=== PATIENT | male | born 1950 | race Caucasian/White ===

== ENCOUNTER 2017-06-06 18:16 | Emergency (ER) | payer MEDICARE, OTHER ==
[2017-06-06 18:25] VITALS: TEMP 98.3
[2017-06-06 18:49] LABS: Basophils % (A) 1 %; Eosinophils # (A) 0.1 k/uL (0-0.7); Eosinophils % (A) 1 %; HCT 42.9 % (39.0-53.0); HGB 14.1 gm/dL (13.0-17.5); Lymphocytes # (A) 2.1 k/uL (1.0-4.8); Lymphocytes % (A) 28 %; MCH 31.7 pg (25.0-35.0); MCHC 32.8 g/dL (31.0-37.0); MCV 96.5 fL (80.0-100.0); Mean Platelet Volume 7.3; Monocytes # (A) 0.6 k/uL (0-1.0); Monocytes % (A) 8 %; Neutrophils # (A) 4.5 k/uL (1.3-7.7); Neutrophils % (A) 61 %; Platelet Count 227 k/uL (150-450); RBC 4.45 m/uL (4.30-5.90); RDW 14.6 % (11.5-15.5); WBC 7.4 k/uL (3.8-10.6)
[2017-06-06 18:59] LABS: ALT 29 U/L (21-72); AST 25 U/L (17-59); Albumin 3.7 g/dL (3.5-5.0); Alkaline Phosphatase 54 U/L (38-126); Amylase 64 U/L (30-110); Anion Gap 9 mmol/L; Blood Urea Nitrogen 20 mg/dL (9-20); Calcium 9.3 mg/dL (8.4-10.2); Carbon Dioxide 29 mmol/L (22-30); Chloride 102 mmol/L (98-107); Glucose 87 mg/dL (74-99); Lipase 42 U/L (23-300); Sodium 140 mmol/L (137-145); Total Bilirubin 0.4 mg/dL (0.2-1.3); Total Protein 6.3 g/dL (6.3-8.2)
[2017-06-06 19:29] LABS: Appearance,Urine Clear (Clear); Bilirubin,Urine Negative (Negative); Blood,Urine Negative (Negative); Color,Urine Yellow; Glucose,Urine (UA) Negative (Negative); Ketones,Urine 1+ (Negative); Leukocyte Esterase,Urine Trace (Negative); Mucus,Urine Occasional /hpf; Nitrite,Urine Negative (Negative); PH, Urine 6.5 (5.0-8.0); Protein,Urine Trace (Negative); RBC,Urine 1 /hpf (0-5); Specific Gravity,Urine 1.024 (1.001-1.035); WBC,Urine <1 /hpf (0-5)
--- NOTE | 2017-06-06 19:52 | XR ---
EXAMINATION TYPE: XR abdomen acute w cxr , 3 VIEWS DATE OF EXAM ORDERED: 06/06/2017 HISTORY: Pain. COMPARISON: None. FINDINGS: The lungs are clear. Pleural space are clear. The heart is not enlarged. Within the abdomen, there is mild gaseous distention of small bowel. Large bowel is normal in caliber . There are air-fluid levels in the upper abdomen. No unusual calcifications are seen. IMPRESSION: 1. NORMAL CHEST. 2. FINDINGS MOST CONSISTENT WITH SMALL BOWEL ILEUS WITHIN THE ABDOMEN.
--- NOTE | 2017-06-06 20:28 | ED ---
Abdominal Pain HPI - General Chief Complaint: Chest Pain Stated Complaint: chest pain Time Seen by Provider: 06/06/17 18:25 Source: EMS Mode of arrival: EMS Limitations: physical limitation (Developmental delay) - History of Present Illness Initial Comments: This patient is a 66-year-old man here for epigastric and right upper quadrant pain. This pain started approximately 2 hours before he arrived here. He had eaten and then developed pain and vomiting. History is mostly given by the patient's caregiver as she does have some developmental delay. He is not able to characterize the pain well. It does seem to come in "spasms" that last a few minutes and resolve with a number of minutes in between. He has had a few episodes of vomiting as well. No reported or apparent dyspnea. No cough or hemoptysis. No change in urination or bowel movements noted by the caregiver. MD Complaint: abdominal pain Onset/Timin -: hour(s) Location: RUQ, epigastric Radiation: none Migration to: no migration Severity: severe Quality: aching Consistency: now resolved, colicky Improves With: nothing Worsens With: nothing Associated Symptoms: nausea, vomiting - Related Data Home Medications Medication Instructions Recorded Confirmed Divalproex Sodium [Depakote] 500 mg PO BID 06/06/17 06/06/17 Previous Rx's Medication Instructions Recorded Ondansetron Odt [Zofran ODT] 4 mg PO Q8HR PRN #10 tab 06/06/17 Allergies Allergy/AdvReac Type Severity Reaction Status Date / Time No Known Allergies Allergy Verified 06/06/17 19:35 Review of Systems ROS Statement: Those systems with pertinent positive or pertinent negative responses have been documented in the HPI. ROS Other: All systems not noted in ROS Statement are negative. Limitations: ROS unobtainable due to patients medical condition (Developmental delay) Constitutional: Denies: fever Respiratory: Denies: cough, dyspnea Cardiovascular: Denies: chest pain, syncope Gastrointestinal: Reports: abdominal pain, vomiting. Denies: diarrhea, constipation Genitourinary: Denies: dysuria, hematuria Musculoskeletal: Denies: back pain Skin: Denies: rash Neurological: Denies: headache Past Medical History Additional Past Medical History / Comment(s): pt poor historian History of Any Multi-Drug Resistant Organisms: None Reported Additional Past Surgical History / Comment(s): pt poor historian Smoking Status: Current every day smoker Past Alcohol Use History: None Reported Past Drug Use History: None Reported General Exam Limitations: no limitations General appearance: alert, in no apparent distress, other (Patient appears to be resting comfortably at my exam.) Head exam: Present: atraumatic, normocephalic Eye exam: Present: normal appearance. Absent: scleral icterus, conjunctival injection ENT exam: Present: normal oropharynx Respiratory exam: Present: normal lung sounds bilaterally. Absent: respiratory distress, wheezes, rales, rhonchi, stridor, chest wall tenderness Cardiovascular Exam: Present: regular rate, normal rhythm, normal heart sounds. Absent: systolic murmur, diastolic murmur, rubs, gallop GI/Abdominal exam: Present: soft, tenderness (Upper quadrant). Absent: distended, guarding, rebound, rigid, organomegaly, mass, pulsatile mass, hernia Extremities exam: Present: normal inspection, normal capillary refill. Absent: pedal edema, calf tenderness Back exam: Present: normal inspection. Absent: CVA tenderness (R), CVA tenderness (L) Neurological exam: Present: alert Skin exam: Present: warm, dry, intact, normal color. Absent: rash Course Vital Signs 06/06/17 06/06/17 18:18 20:28 Temperature 98.3 F Pulse Rate 51 L 78 Respiratory 18 16 Rate Blood Pressure 133/65 131/70 O2 Sat by Pulse 99 99 Oximetry Medical Decision Making - Medical Decision Making Further history revealed that the patient had eaten a chicken sandwich which the caregiver was concerned about, prior to the onset of symptoms. On reevaluation, the patient states that he has stopped having nausea and vomiting. The spasms have resolved. He has no tenderness on the repeat exam. The patient does want to go home. I discussed the findings, and stressed that if they do go home they need to follow-up with Dr. Ashby, calling for an appointment in the morning. If there is any problem getting into see him tomorrow or if the symptoms recur they will return here. I did provide a by mouth fluid challenge which the patient tolerated. - Lab Data Result diagrams: 06/06/17 18:32 06/06/17 18:32 Lab Results 06/06/17 06/06/17 06/06/17 Range/Units 18:32 18:32 18:32 WBC 7.4 (3.8-10.6) k/uL RBC 4.45 (4.30-5.90) m/uL Hgb 14.1 (13.0-17.5) gm/dL Hct 42.9 (39.0-53.0) % MCV 96.5 (80.0-100.0) fL MCH 31.7 (25.0-35.0) pg MCHC 32.8 (31.0-37.0) g/dL RDW 14.6 (11.5-15.5) % Plt Count 227 (150-450) k/uL Neutrophils % 61 % Lymphocytes % 28 % Monocytes % 8 % Eosinophils % 1 % Basophils % 1 % Neutrophils # 4.5 (1.3-7.7) k/uL Lymphocytes # 2.1 (1.0-4.8) k/uL Monocytes # 0.6 (0-1.0) k/uL Eosinophils # 0.1 (0-0.7) k/uL Basophils # 0.0 (0-0.2) k/uL Sodium 140 (137-145) mmol/L Potassium 4.0 (3.5-5.1) mmol/L Chloride 102 (98-107) mmol/L Carbon Dioxide 29 (22-30) mmol/L Anion Gap 9 mmol/L BUN 20 (9-20) mg/dL Creatinine 0.76 (0.66-1.25) mg/dL Est GFR (MDRD) Af Amer >60 (>60 ml/min/1.73 sqM) Est GFR (MDRD) Non-Af >60 (>60 ml/min/1.73 sqM) Glucose 87 (74-99) mg/dL Calcium 9.3 (8.4-10.2) mg/dL Total Bilirubin 0.4 (0.2-1.3) mg/dL AST 25 (17-59) U/L ALT 29 (21-72) U/L Alkaline Phosphatase 54 (38-126) U/L Troponin I <0.012 (0.000-0.034) ng/mL Total Protein 6.3 (6.3-8.2) g/dL Albumin 3.7 (3.5-5.0) g/dL Amylase 64 (30-110) U/L Lipase 42 (23-300) U/L Urine Color Urine Appearance (Clear) Urine pH (5.0-8.0) Ur Specific [place] (1.001-1.035) Urine Protein (Negative) Urine Glucose (UA) (Negative) Urine Ketones (Negative) Urine Blood (Negative) Urine Nitrite (Negative) Urine Bilirubin (Negative) Urine Urobilinogen (<2.0) mg/dL Ur Leukocyte Esterase (Negative) Urine RBC (0-5) /hpf Urine WBC (0-5) /hpf Urine Mucus (None) /hpf 06/06/17 Range/Units 19:12 WBC (3.8-10.6) k/uL RBC (4.30-5.90) m/uL Hgb (13.0-17.5) gm/dL Hct (39.0-53.0) % MCV (80.0-100.0) fL MCH (25.0-35.0) pg MCHC (31.0-37.0) g/dL RDW (11.5-15.5) % Plt Count (150-450) k/uL Neutrophils % % Lymphocytes % % Monocytes % % Eosinophils % % Basophils % % Neutrophils # (1.3-7.7) k/uL Lymphocytes # (1.0-4.8) k/uL Monocytes # (0-1.0) k/uL Eosinophils # (0-0.7) k/uL Basophils # (0-0.2) k/uL Sodium (137-145) mmol/L Potassium (3.5-5.1) mmol/L Chloride (98-107) mmol/L Carbon Dioxide (22-30) mmol/L Anion Gap mmol/L BUN (9-20) mg/dL Creatinine (0.66-1.25) mg/dL Est GFR (MDRD) Af Amer (>60 ml/min/1.73 sqM) Est GFR (MDRD) Non-Af (>60 ml/min/1.73 sqM) Glucose (74-99) mg/dL Calcium (8.4-10.2) mg/dL Total Bilirubin (0.2-1.3) mg/dL AST (17-59) U/L ALT (21-72) U/L Alkaline Phosphatase (38-126) U/L Troponin I (0.000-0.034) ng/mL Total Protein (6.3-8.2) g/dL Albumin (3.5-5.0) g/dL Amylase (30-110) U/L Lipase (23-300) U/L Urine Color Yellow Urine Appearance Clear (Clear) Urine pH 6.5 (5.0-8.0) Ur Specific [place] 1.024 (1.001-1.035) Urine Protein Trace H (Negative) Urine Glucose (UA) Negative (Negative) Urine Ketones 1+ H (Negative) Urine Blood Negative (Negative) Urine Nitrite Negative (Negative) Urine Bilirubin Negative (Negative) Urine Urobilinogen 3.0 (<2.0) mg/dL Ur Leukocyte Esterase Trace H (Negative) Urine RBC 1 (0-5) /hpf Urine WBC <1 (0-5) /hpf Urine Mucus Occasional H (None) /hpf - EKG Data -: EKG Interpreted by Sc EKG shows normal: sinus rhythm, axis, intervals (Normal), QRS complexes (Normal) , ST-T waves (Normal) Rate: bradycardia (Rate proximally 50 bpm) Disposition Clinical Impression: Vomiting, Ileus Disposition: HOME SELF-CARE Condition: Fair Instructions: Ileus (ED) Prescriptions: Ondansetron Odt [Zofran ODT] 4 mg PO Q8HR PRN #10 tab PRN Reason: Nausea Referrals: José Huerta DO [Primary Care Provider] - 1-2 days
[2017-06-06 20:31] VITALS: RESP 16
--- NOTE | 2017-06-06 21:44 | US ---
EXAMINATION TYPE: US abdomen limited DATE OF EXAM: 06/06/2017 COMPARISON: NONE CLINICAL HISTORY: Pain, RUQ. Vomiting EXAM MEASUREMENTS: Liver Length: 15.2 cm Gallbladder Wall: 0.24 cm CBD: 0.48 cm Right Kidney: 10.1 x 4.5 x 4.4 cm Pancreas: Obscured by bowel gas Liver: Fluid visualized Gallbladder: No stones seen Evidence for sonographic Delgadillo's sign: No CBD: wnl Right Kidney: No hydronephrosis or masses seen Small amount of pleural effusion seen. The pancreas is poorly visualized. The liver is normal in size without biliary dilatation. The gallbladder is unremarkable. The gallbladder wall measures 2.4 mm. The distal common hepatic duct measures 4.8 mm. There is no sonographic Delgadillo's sign. The right kidney is unremarkable. There is a scant amount of ascites adjacent to the dome of the liver. There is also some free fluid b etween the liver and the right kidney. IMPRESSION: MINIMAL ASCITES.
[2017-06-06 22:18] VITALS: BP 138/75; PULSE 55
== END 2017-06-06 22:17 | disposition home or self-care (01) ==
LOC: EC 18:16
DX: K56.7 Ileus, unspecified (principal); F17.200 Nicotine dependence, unspecified, uncomplicated; Z79.899 Other long term (current) drug therapy
CPT/HCPCS: 36415; 74022; 76705; 80053; 81001; 82150; 83690; 84484; 85025; 93005; 99285

== ENCOUNTER → 2019-06-19 | Outpatient (CLI) | payer MEDICARE, OTHER ==
[2019-06-19 11:27] LABS: African American GFR (CKD) >90 (>60 ml/min/1.73 sqM); Blood Urea Nitrogen 20 mg/dL (9-20); Non-African American GFR(CKD) >90 (>60 ml/min/1.73 sqM)
--- NOTE | 2019-06-19 12:04 | CT ---
EXAMINATION TYPE: CT brain wo/w con DATE OF EXAM: 06/19/2019 COMPARISON: None HISTORY: unspecified dementia CT DLP: 1565.2 mGycm Automated exposure control for dose reduction was used. CONTRAST: CT scan of the head is performed without and with IV Contrast, patient injected with 100 mL of Isovue 300. FINDINGS: Mild to moderate generalized degenerative change with low-attenuation the white matter which is nonsp ecific but most typical remote microvascular ischemia. No acute hemorrhage or mass effect. No midline shift. No pathologic enhancement. Craniocervical junction maintained. No significant evidence of sinusitis. Intraorbital structures are symmetric. Partially empty sella turcica incidentally noted. Abnormal soft tissue in the external au ditory canals noted correlate clinically. IMPRESSION: 1. Degenerative and nonspecific white matter changes most typical remote microvascular ischemia. No e nhancing mass or mass effect.
== END | disposition home or self-care (01) ==
LOC: RADCTMAIN 10:42
PROVIDERS: ATTEND Family Medicine
DX: I67.82 Cerebral ischemia (principal); R90.89 Other abnormal findings on diagnostic imaging of central nervous system; F79 Unspecified intellectual disabilities; F03.90 Unspecified dementia, unspecified severity, without behavioral disturbance, psychotic disturbance, mood disturbance, and anxiety
CPT/HCPCS: 82565; 84520; 70470; 36415; Q9967